=== PATIENT | male | born 1955 | race Caucasian/White ===

== ENCOUNTER 2016-09-01 10:10 | Outpatient (CLI) | payer OTHER ==
--- NOTE | 2016-09-01 19:27 | XRAY Report ---
X-RAYS OF THE LEFT INDEX AND MIDDLE FINGERS: 09/01/2016 CLINICAL HISTORY: Trauma. COMPARISON: None. FINDINGS: Mild soft tissue swelling is noted about the left index and middle fingers. No fracture i s noted. IMPRESSION: MILD SOFT TISSUE SWELLING IS SEEN IN THE LEFT INDEX AND MIDDLE FINGERS WITHOUT FRACTURE. JOB #: [id number] EXT JOB #:[id number]
== END 2016-09-01 10:11 | disposition home or self-care (01) ==
LOC: DI 10:10
PROVIDERS: ATTEND Physician Assistant Medical
DX: S69.92XA Unspecified injury of left wrist, hand and finger(s), initial encounter (principal)
CPT/HCPCS: 73140

== ENCOUNTER 2017-03-08 13:24 | Outpatient (CLI) | payer OTHER | END 2017-03-08 13:25 | disposition home or self-care (01) | LOC: SC 13:24 | PROVIDERS: ATTEND Internal Medicine Pulmonary Disease | DX: G47.33 Obstructive sleep apnea (adult) (pediatric) (principal) | CPT/HCPCS: 99203; 99212 ==

== ENCOUNTER 2017-06-21 08:00 | Outpatient (CLI) | payer OTHER ==
[2017-06-21 12:42] LABS: BASOPHILS % (AUTO) 0.5 %; EOSINOPHILS # (AUTO) 0.2 10^3/uL (0.0-0.7); EOSINOPHILS % (AUTO) 3.4 %; HGB - HEMOGLOBIN 14.1 g/dL (14.0-18.0); LYMPHOCYTES # (AUTO) 2.3 10^3/uL (1.5-3.5); LYMPHOCYTES % (AUTO) 44.9 %; MEAN CORPUSCULAR HEMOGLOBIN 29.6 pg (27.0-31.0); MEAN CORPUSCULAR HGB CONC 34.1 g/dL (32.0-36.0); MEAN CORPUSCULAR VOLUME 86.8 fL (80.0-94.0); MEAN PLATELET VOLUME 8.9 fL (7.4-11.4); MONOCYTES # (AUTO) 0.4 10^3/uL (0.0-1.0); MONOCYTES % (AUTO) 7.9 %; NEUTROPHILS # (AUTO) 2.2 10^3/uL (1.5-6.6); NEUTROPHILS % (AUTO) 43.3 %; PLT - PLATELET COUNT 162 10^3/uL (130-450); RED BLOOD COUNT 4.76 10^6/uL (4.70-6.10); WHITE BLOOD COUNT 5.2 x10^3/uL (4.8-10.8)
[2017-06-21 13:11] LABS: ALBUMIN 3.9 g/dL (3.2-5.5); ALBUMIN/GLOBULIN RATIO 1.2 (1.0-2.2); ALKALINE PHOSPHATASE 53 IU/L (42-121); ALT ALANINE AMINOTRANSFERASE 24 IU/L (10-60); AST ASPARTATE AMINOTRANSFERASE 19 IU/L (10-42); BILIRUBIN,TOTAL 0.5 mg/dL (0.2-1.0); BUN - BLOOD UREA NITROGEN 20 mg/dL (6-20); CALCIUM 8.6 mg/dL (8.5-10.3); CARBON DIOXIDE - CO2 28 mmol/L (21-32); CHLORIDE 102 mmol/L (101-111); CHOL/HDL RATIO 3.8 (<5.0); CHOLESTEROL 126 mg/dL; GFR - MDRD 76 (>89); GLUCOSE 134 mg/dL (70-100); HDL CHOLESTEROL 33 mg/dL; LDL CHOLESTEROL,CALCULATED 67 mg/dL; SODIUM 138 mmol/L (135-145); TOTAL PROTEIN 7.2 g/dL (6.7-8.2); VLDL CHOLESTEROL 26 mg/dL
[2017-06-21 13:32] LABS: HB2 TOTAL 15.2 g/dL; HEMOGLOBIN A1C 1.2 g/dL; HEMOGLOBIN A1C % 9.4 % (4.6-6.2)
== END 2017-06-21 23:59 | disposition home or self-care (01) ==
LOC: LAB.N 08:00
PROVIDERS: ATTEND Internal Medicine
DX: E11.9 Type 2 diabetes mellitus without complications (principal); E78.5 Hyperlipidemia, unspecified; M06.9 Rheumatoid arthritis, unspecified
CPT/HCPCS: 36415; 80053; 80061; 83036; 83721; 85025

== ENCOUNTER 2019-08-23 18:18 | Outpatient (CLI) | payer OTHER | END 2019-08-23 18:19 | disposition home or self-care (01) | LOC: COV 18:18 | PROVIDERS: ATTEND Family Medicine | DX: R05 Cough (principal); M79.10 Myalgia, unspecified site; R53.83 Other fatigue; R68.83 Chills (without fever); J02.9 Acute pharyngitis, unspecified; R19.7 Diarrhea, unspecified | CPT/HCPCS: 81599 ==

== ENCOUNTER 2019-08-30 10:43 | Outpatient (CLI) | payer OTHER | END 2019-08-30 10:44 | disposition home or self-care (01) | LOC: COV 10:43 | PROVIDERS: ATTEND Physician Assistant Medical | DX: J32.9 Chronic sinusitis, unspecified (principal) | CPT/HCPCS: 81599 ==

== ENCOUNTER 2019-10-05 10:06 | Outpatient (CLI) | payer OTHER ==
[2019-10-05 10:36] LABS: BASOPHILS % (AUTO) 0.5 %; EOSINOPHILS # (AUTO) 0.1 10^3/uL (0.0-0.7); EOSINOPHILS % (AUTO) 3.5 %; HGB - HEMOGLOBIN 13.6 g/dL (14.0-18.0); LYMPHOCYTES # (AUTO) 1.6 10^3/uL (1.5-3.5); LYMPHOCYTES % (AUTO) 39.1 %; MEAN CORPUSCULAR HEMOGLOBIN 30.2 pg (27.0-31.0); MEAN CORPUSCULAR HGB CONC 33.6 g/dL (32.0-36.0); MEAN PLATELET VOLUME 9.8 fL (7.4-11.4); MONOCYTES # (AUTO) 0.3 10^3/uL (0.0-1.0); MONOCYTES % (AUTO) 7.4 %; NEUTROPHILS % (AUTO) 49.5 %; PLT - PLATELET COUNT 163 10^3/uL (130-450); RED CELL DISTRIBUTION WIDTH 13.2 % (12.0-15.0)
[2019-10-05 10:51] LABS: HB2 TOTAL 14.2 g/dL; HEMOGLOBIN A1C 0.75 g/dL
[2019-10-05 11:25] LABS: ALBUMIN 4.1 g/dL (3.2-5.5); ALBUMIN/GLOBULIN RATIO 1.3 (1.0-2.2); ALKALINE PHOSPHATASE 50 IU/L (42-121); ALT ALANINE AMINOTRANSFERASE 21 IU/L (10-60); AST ASPARTATE AMINOTRANSFERASE 18 IU/L (10-42); BUN - BLOOD UREA NITROGEN 26 mg/dL (6-20); CALCIUM 8.6 mg/dL (8.5-10.3); CARBON DIOXIDE - CO2 27 mmol/L (21-32); CHLORIDE 101 mmol/L (101-111); CHOL/HDL RATIO 3.1 (<5.0); CHOLESTEROL 112 mg/dL; GLUCOSE 133 mg/dL (70-100); HDL CHOLESTEROL 36 mg/dL; LDL CHOLESTEROL,CALCULATED 62 mg/dL; LDL/HDL RATIO 1.7 (<3.6); SODIUM 137 mmol/L (135-145); TOTAL PROTEIN 7.3 g/dL (6.7-8.2); VLDL CHOLESTEROL 14 mg/dL
[2019-10-05 11:45] LABS: MICROALBUM/CREATININE RATIO,UR 13.7 ug/mg (<30.0); MICROALBUMIN,URINE 1.6 mg/dL (0-300.0)
== END 2019-10-05 10:07 | disposition home or self-care (01) ==
LOC: LAB 10:06
PROVIDERS: ATTEND Family Medicine
DX: E11.9 Type 2 diabetes mellitus without complications (principal); E78.5 Hyperlipidemia, unspecified; I10 Essential (primary) hypertension
CPT/HCPCS: 36415; 80053; 80061; 82043; 82570; 83036; 83721; 84443; 85025

== ENCOUNTER 2020-03-21 08:35 | Outpatient (CLI) | payer MEDICARE, OTHER ==
[2020-03-21 09:53] VITALS: BP 150/90
--- NOTE | 2020-03-21 09:53 | SLEEP CARE CONSULTATION ---
Information from patient questionnaire entered by Marsha Zamarripa. I have reviewed and concur with the information entered by Marsha Zamarripa. This document represents the service I personally performed and the decisions made by me, Sharon Satna ARNP. History of Present Illness Service Date and Time: 03/21/2020 0835 Reason for Visit: New patient, Previously diagnosed sleep apnea (severe - AHI - 57.8), sleep apnea on CPAP therapy, Re-establish care Chief Complaint: reports: Other (re-establish care support) Date of Onset: BINDU about 15 years Usual bedtime: varies Time it takes to fall asleep: 2-10 minutes Snores at night: Yes (occasionally) Observed to quit breathing while asleep: No Sleeps alone due to snoring: Yes Reasons for waking at night: reports: Bathroom (occasionally), Other (mask leaks) Toss, Turn, or Twitch while sleeping: No Recalls having dreams: Yes Usually gets out of bed at: varies 6-9 am Feels refreshed in the morning: Yes Morning headache: No Sleepy or fatigued during the day: No Ever fallen asleep while driving: Yes Takes day naps: Yes Dreams during day naps: No Prior sleep studies: Yes Year and Where: 2007 - [facility] Sleep Additional HPI information: GENE ESPINAL was diagnosed to have severe, AHI 57.8, obstructive sleep apnea- hypopnea syndrome and returned today for CPAP therapy re-establishment of care. - Parasomnia Symptoms Ever been unable to move upon waking from sleep: No Walks in sleep: No Talks in sleep: No Ever acted out dreams in sleep: No Ever felt weak in the knees when startled or emotional: No Bothered by creepy, crawly, restless sensations in legs: No Problems with memory or concentration: No CPAP Compliance Data - Data Reviewed with Patient Average duration of nightly device use: 7 hr 56 min Compliance rate %: 99.4 (180 days) Current pressure setting (cmH2O): 18-20 Humidity settin Heated hose settin Average residual AHI: 4.7 Average large leak: 12 min 50 sec Compliance data discussion: Patient has been using [employer] for supplies, but would like to change because he has experienced poor service with this [email or web address] when trying to get supplies or service. He is using a Quattro full face mask. He has a spare mask. He last changed his cushion 3 weeks ago. Subjective Patient concerns: reports: air blowing in eyes (just occasional, adjusting resolves it), nasal congestion (clears with Vicks or Rhinocort, no real problems), dry mouth, nose, throat (rare, 1-2 times a month when mouth is open). denies: aerophagia, mask discomfort, mask leak noise, condensation in mask/hose, epistaxis, other Observed to snore while using device: No Current pressure setting perceived as: comfortable On therapy, patient: reports: sleeping better, awakening more refreshed, being more awake and alert during the day, more rested overall. denies: drowsiness while driving Initial [place] Sleepiness Scale score: 10 (in 2007) Current [place] Sleepiness Scale score: 4 Past Medical History Past Medical History: reports: Diabetes, Other (RA that is in remission). denies: Hypertension (may be pre hypertensive; white coat too), Arrythmia, Anxiety, Impotence, Depression, GERD Social History The patient's occupation is a RN. Patient is and lives in [place]. Have you smoked in the past 12 months: No Cigarettes per day (20/pack): 20 Years of smokin Quit date: July 28, 1998 Smoking Pack Years: 18.0 Alcohol use: Yes Alcohol amount and frequency: 1-2 drinks 1-2 times a month Caffeine use: Yes Caffeine amount and frequency: coffee 2 times a day Family History Family history of sleep disordered breathing: Yes (brother) Family Hx Sleep Apnea: Sibling: Snoring, Sleep apnea - Treated Allergies and Home Medications Drug allergies reviewed: Yes (rocephin, toradol, septra) Home medication list reviewed: Yes Allergy and home medication list: Metformin Hydroxyzine Lipitor aspirin Novolog insulin Lantus insulin Neurontin alkaseltzer, prn Motrin, prn Review of Systems Weight loss over past 5 years: 36-40 Cardiovascular: reports: high blood pressure (only borderline, improving with weight loss and diet change). denies: palpitations, irregular heart rate or pulse Respiratory: denies: shortness of breath Gastrointestinal: denies: heartburn, difficulty swallowing Urinary: denies: impotence Neurological: reports: other (sensor neural hearing loss, right side). denies: headaches Ear/Nose/Throat: reports: nasal congestion, sinus problems (history of sinuse surgery), tonsillectomy, wisdom teeth removed. denies: dry mouth/throat, injury to nose Endocrine: denies: thyroid disease Musculoskeletal: reports: joint pain Immunologic: reports: sneezing, itching Physical Exam Blood Pressure: 150/90 Cuff size: large Heart Rate: 69 O2 Saturation: 96 Height: 5 ft 10 in Weight: 282 lb Body Mass Index: 40.4 BMI Classification: Morbidly Obese Neck circumference: 17.75 (inches) Nostrils: partially obstructed Turbinates: swollen Mouth and throat: narrow oropharynx Uvula visualization: 100% Mallampati Class I Tongue: normal in size Tonsils: absent bilaterally Chin and jaw: normal size and position Neck: normal w/o lymphadenopathy or thyromegaly Heart: regular rate and rhythm Lungs: clear bilaterally Impression and Plan 1. Obstructive Sleep Apnea-Hypopnea Syndrome, severe, with good treatment compliance and fair apnea control. On CPAP therapy, the patient has better sleep quality and is more rested overall. He is not happy with service he has been getting from [facility] and would like to try a new DME. Patient was informed that another DME can be used. I will have my complaint coordinator inform of DME options. A DWO prescription will then be made. Patient advised to contact this office if further supply problems. Patient's apnea severity and rationale for treatment to reduce apnea, improve sleep quality and reduce cardiovascular and cerebrovascular events was reviewed. I also reviewed the benefit of consistent device use of CPAP for diabetes. * Continue autoCPAP pressure at 18-20 cmH2O * Transfer DME * Notify me if snoring with mask or feeling that the pressure is too much or too little * Attempt to lose weight * Call this office if any problems using CPAP * Return for follow up in 1 year, or sooner if concerns arise Counseling Topics: Spare mask, Weight loss health impact Visit Type: In Office Time Spent with Patient (minutes): 46 Provider Statement: I spent 100% of the Face to Face Visit with the patient with greater than 50% spent counseling the patient and coordination of care.
== END 2020-03-21 08:36 | disposition home or self-care (01) ==
LOC: SC 08:35
PROVIDERS: ATTEND Nurse Practitioner Family
DX: G47.33 Obstructive sleep apnea (adult) (pediatric) (principal); E66.01 Morbid (severe) obesity due to excess calories; Z68.41 Body mass index [BMI] 40.0-44.9, adult
CPT/HCPCS: 99203; G0463; 99212

== ENCOUNTER 2020-05-08 11:36 | Outpatient (CLI) | payer MEDICARE, OTHER ==
--- NOTE | 2020-05-08 13:15 | XRAY Report ---
PROCEDURE: Wrist 3 View RT INDICATIONS: ULNAR NERVE ENTRAPMENT, RT TECHNIQUE: 3 views of the wrist were acquired. COMPARISON: None FINDINGS: Bones: No fractures or dislocations. Mild osteoarthritic changes predominantly along radial aspect of right wrist are seen. No suspicious bony lesions. Scaphoid view: Scaphoid is intact. Soft tissues: No suspicious soft tissue calcifications. 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 No fracture or dislocation. If cli nically indicated, consider MR examination of wrist for evaluation of internal derangement. Reviewed by: Vince Du MD on 05/08/2020 1:14 PM PST Approved by: Vince Du MD on 05/08/2020 1:14 PM PST Station ID: [id number]
--- NOTE | 2020-05-08 13:26 | XRAY Report ---
PROCEDURE: Cervical Spine 2 View INDICATIONS: ULNAR NERVE ENTRAPMENT, RT TECHNIQUE: 3 view(s) of the cervical spine were acquired. COMPARISON: None. FINDINGS: Bones: No fractures or dislocations to the C7-T1 level. Straightening of normal cervical lordosis i s seen. Degenerative endplate changes are noted at C5-6 and C6-7 levels. The lateral masses of C1 lulu ear intact on the odontoid view. No suspicious bony lesions. Soft tissues: No prevertebral soft tissue swelling. IMPRESSION: Degenerative disc disease in lower cervical spine. No compression fracture or spondyloli sthesis. Reviewed by: Vince Du MD on 05/08/2020 1:25 PM PST Approved by: Vince Du MD on 05/08/2020 1:25 PM PST Station ID: [id number]
== END 2020-05-08 11:37 | disposition home or self-care (01) ==
LOC: DI 11:36
PROVIDERS: ATTEND Family Medicine
DX: M19.031 Primary osteoarthritis, right wrist (principal); M50.322 Other cervical disc degeneration at C5-C6 level

== ENCOUNTER 2020-05-16 08:00 | Outpatient (CLI) | payer MEDICARE, OTHER ==
[2020-05-16 14:07] LABS: BUN - BLOOD UREA NITROGEN 19 mg/dL (6-20); CALCIUM 9.5 mg/dL (8.5-10.3); CARBON DIOXIDE - CO2 30 mmol/L (21-32); CHLORIDE 99 mmol/L (101-111); CREATININE 1.1 mg/dL (0.6-1.2); GLUCOSE 205 mg/dL (70-100); RHEUMATOID FACTOR NEGATIVE (Negative)
[2020-05-16 14:08] LABS: CRP - C-REACTIVE PROTEIN < 1.0 mg/dL (0-1.0)
[2020-05-16 14:22] LABS: CREATININE,URINE 153.7 mg/dL; MICROALBUM/CREATININE RATIO,UR 14.3 ug/mg (<30.0); MICROALBUMIN,URINE 2.2 mg/dL (0-300.0)
[2020-05-16 20:57] LABS: HEMOGLOBIN A1c% 7.5 % (4.27-6.07)
[2020-05-18 12:07] LABS: DNA (DS) ANTIBODY 1 IU/mL
[2020-05-18 21:12] LABS: CYCLIC CITRULL PEPTIDE CCP IGG 25 UNITS
== END 2020-05-16 23:59 ==
LOC: LAB.WCP 08:00
PROVIDERS: ATTEND Family Medicine
DX: E11.9 Type 2 diabetes mellitus without complications (principal); E66.01 Morbid (severe) obesity due to excess calories; M05.10 Rheumatoid lung disease with rheumatoid arthritis of unspecified site; G47.33 Obstructive sleep apnea (adult) (pediatric); I10 Essential (primary) hypertension
CPT/HCPCS: 36415; 80048; 82043; 82570; 83036; 85651; 86038; 86140; 86200; 86225; 86430

== ENCOUNTER 2020-06-06 14:12 | Outpatient (CLI) | payer MEDICARE, OTHER ==
--- NOTE | 2020-06-07 14:28 | MRI Report ---
A single PROCEDURE: Wrist RT W/O INDICATIONS: R ULNAR NERVE ENTRAPMENT, CARPAL TUNNEL SYNDRO TECHNIQUE: Noncontrast coronal proton density fast spin echo and T2 fast spin echo with fat saturation; coronal 3-D gradient echo, axial T1 spin echo and T2 fast spin echo with fat saturation, sagittal T1 spin ech o through the wrist. COMPARISON: None. FINDINGS: Image quality: Suboptimal due to motion artifact and signal dropout. Bones and cartilage: The carpal bones are normally aligned. No bone marrow contusions or fractures. There is ill-defined sclerosis and signal change involving the lunate, with T2 hyperintensity raisin g possibility of Kienbock disease. No evidence for avascular necrosis. First CMC and triscaphe joint generation. Nonspecific marrow sig nal changes and T2 hyperintensity involving the first metacarpal base. Scattered subchondral sclerosi s and spurring. Carpal ligaments: The scapholunate and lunotriquetral ligaments are not well visualized. In the abs ence of intra-articular contrast, the extrinsic carpal ligaments are not well identified. On sagitta l images, the pisohamate ligament appears intact. Triangular fibrocartilage complex: The triangular fibrocartilage appears intact. The adjacent menis zachariah homolog appears normal in the absence of intra-articular contrast. The extensor carpi ulnaris te ndon is normal in location and morphology. Tendons and soft tissues: There is mild T2 hyperintensity adjacent to the flexor tendons at the level of the carpal tunnel. There is mild volar bowing appearance of the flexor retinaculum. Median nerve demonstrates normal size and signal intensity. The ulnar nerve appears normal within Guyon?s canal. All six extensor tendon compartments demonstra te normal morphology, without pathologic tendon sheath fluid. No soft tissue ganglion cysts. IMPRESSION: Mild edema/T2 hyperintensity adjacent to the flexor tendons within the carpal tunnel which can be see n in setting of carpal tunnel syndrome although the MR appearance is subtle therefore please correlat e clinically to exam findings. Ill-defined signal changes involving the lunate raises possibility of Kienbock disease. Diffuse osteoarthritis, most pronounced in the ulnocarpal compartment, triscaphe and first CMC joints . Reviewed by: Hadley Raya MD on 06/07/2020 2:26 PM PST Approved by: Hadley Raya MD on 06/07/2020 2:26 PM PST Station ID: [id number]
== END 2020-06-06 14:13 | disposition home or self-care (01) ==
LOC: DI 14:12
PROVIDERS: ATTEND Family Medicine
DX: G56.21 Lesion of ulnar nerve, right upper limb (principal); G56.01 Carpal tunnel syndrome, right upper limb; M19.031 Primary osteoarthritis, right wrist

== ENCOUNTER 2020-10-28 08:00 | Outpatient (CLI) | payer MEDICARE, OTHER ==
[2020-10-28 18:36] LABS: BASOPHILS % (AUTO) 0.6 %; EOSINOPHILS # (AUTO) 0.1 10^3/uL (0.0-0.7); EOSINOPHILS % (AUTO) 2.3 %; HCT - HEMATOCRIT 41.4 % (42.0-52.0); HGB - HEMOGLOBIN 13.9 g/dL (14.0-18.0); LYMPHOCYTES # (AUTO) 1.6 10^3/uL (1.5-3.5); LYMPHOCYTES % (AUTO) 33.5 %; MEAN CORPUSCULAR HEMOGLOBIN 30.9 pg (27.0-31.0); MEAN CORPUSCULAR HGB CONC 33.6 g/dL (32.0-36.0); MEAN PLATELET VOLUME 10.9 fL (7.4-11.4); MONOCYTES # (AUTO) 0.4 10^3/uL (0.0-1.0); MONOCYTES % (AUTO) 7.9 %; NEUTROPHILS # (AUTO) 2.7 10^3/uL (1.5-6.6); NEUTROPHILS % (AUTO) 55.5 %; PLT - PLATELET COUNT 180 10^3/uL (130-450); RED CELL DISTRIBUTION WIDTH 13.2 % (12.0-15.0); WHITE BLOOD COUNT 4.8 x10^3/uL (4.8-10.8)
[2020-10-28 19:02] LABS: ESTIMATED AVERAGE GLUCOSE 137 mg/dL (70-100); HEMOGLOBIN A1c% 6.4 % (4.27-6.07)
[2020-10-28 19:11] LABS: ALBUMIN 4.3 g/dL (3.2-5.5); ALBUMIN/GLOBULIN RATIO 1.4 (1.0-2.2); ALKALINE PHOSPHATASE 51 IU/L (42-121); ALT ALANINE AMINOTRANSFERASE 25 IU/L (10-60); AST ASPARTATE AMINOTRANSFERASE 23 IU/L (10-42); BILIRUBIN,TOTAL 0.6 mg/dL (0.2-1.0); BUN - BLOOD UREA NITROGEN 20 mg/dL (6-20); CALCIUM 9.4 mg/dL (8.5-10.3); CARBON DIOXIDE - CO2 27 mmol/L (21-32); CHLORIDE 104 mmol/L (101-111); CHOL/HDL RATIO 2.8 (<5.0); CHOLESTEROL 122 mg/dL; GFR - MDRD 75 (>89); GLUCOSE 150 mg/dL (70-100); HDL CHOLESTEROL 43 mg/dL; LDL CHOLESTEROL,CALCULATED 58 mg/dL; LDL/HDL RATIO 1.3 (<3.6); POTASSIUM 4.2 mmol/L (3.5-5.0); SODIUM 141 mmol/L (135-145); THYROID STIMULATING HORMONE 1.11 uIU/mL (0.34-5.60); TOTAL PROTEIN 7.4 g/dL (6.7-8.2); TRIGLYCERIDES 103 mg/dL; VLDL CHOLESTEROL 21 mg/dL
== END 2020-10-28 23:59 | disposition home or self-care (01) ==
LOC: LAB.WCP 08:00
PROVIDERS: ATTEND Family Medicine
DX: E11.9 Type 2 diabetes mellitus without complications (principal); E78.5 Hyperlipidemia, unspecified; G47.33 Obstructive sleep apnea (adult) (pediatric); F32.9 Major depressive disorder, single episode, unspecified; I10 Essential (primary) hypertension
CPT/HCPCS: 36415; 80053; 80061; 83036; 83721; 84443; 85025

== ENCOUNTER → 2020-10-31 | Outpatient (CLI) | payer MEDICARE, OTHER ==
--- NOTE | 2020-10-31 17:00 | XRAY Report ---
PROCEDURE: Chest 2 View X-Ray INDICATIONS: CHEST WELL PAIN; CLAVICLE PAIN TECHNIQUE: 2 view(s) of the chest. COMPARISON: None. FINDINGS: Surgical changes and devices: None. Lungs and pleura: No pleural effusions or pneumothorax. Lungs are clear. Mediastinum: Mediastinal contours are normal. Heart size is normal. Bones and chest wall: No suspicious bony abnormalities. Soft tissues appear unremarkable. IMPRESSION: No acute cardiopulmonary pathology. Reviewed by: Vince Du MD on 10/31/2020 4:59 PM PDT Approved by: Vince Du MD on 10/31/2020 4:59 PM PDT Station ID: [id number]
== END ==
LOC: DI.N 07:00
PROVIDERS: ATTEND Family Medicine
DX: R07.9 Chest pain, unspecified (principal); M25.519 Pain in unspecified shoulder

== ENCOUNTER 2021-01-07 09:55 | Outpatient (CLI) | payer MEDICARE, OTHER ==
[2021-01-07 12:24] LABS: HCT - HEMATOCRIT 42.7 % (42.0-52.0); HGB - HEMOGLOBIN 14.1 g/dL (14.0-18.0); MEAN CORPUSCULAR HEMOGLOBIN 30.3 pg (27.0-31.0); MEAN CORPUSCULAR VOLUME 91.6 fL (80.0-94.0); MEAN PLATELET VOLUME 10.7 fL (7.4-11.4); RED BLOOD COUNT 4.66 10^6/uL (4.70-6.10); RED CELL DISTRIBUTION WIDTH 12.9 % (12.0-15.0); WHITE BLOOD COUNT 5.2 x10^3/uL (4.8-10.8)
[2021-01-07 12:35] LABS: CALCIUM 9.1 mg/dL (8.5-10.3); POTASSIUM 4.1 mmol/L (3.5-5.0)
[2021-01-07 13:40] LABS: ESTIMATED AVERAGE GLUCOSE 151 mg/dL (70-100); HEMOGLOBIN A1c% 6.9 % (4.27-6.07)
== END 2021-01-07 09:56 | disposition home or self-care (01) ==
LOC: LAB.N 09:55
PROVIDERS: ATTEND Family Medicine
DX: Z12.11 Encounter for screening for malignant neoplasm of colon (principal); R61 Generalized hyperhidrosis; E11.9 Type 2 diabetes mellitus without complications; R05 Cough
CPT/HCPCS: 36415; 80048; 83036; 85027

== ENCOUNTER 2021-01-07 10:00 | Outpatient (CLI) | payer MEDICARE, OTHER | END 2021-01-07 10:01 | disposition home or self-care (01) | LOC: DI.N 10:00 | PROVIDERS: ATTEND Family Medicine | DX: Z12.11 Encounter for screening for malignant neoplasm of colon (principal); R61 Generalized hyperhidrosis; E11.9 Type 2 diabetes mellitus without complications; R05 Cough | CPT/HCPCS: 36415; 80048; 83036; 85027 ==

== ENCOUNTER 2021-01-08 10:28 | Outpatient (CLI) | payer MEDICARE, OTHER ==
--- NOTE | 2021-01-08 11:08 | XRAY Report ---
PROCEDURE: Chest 2 View X-Ray INDICATIONS: DIAPHORESIS TECHNIQUE: 2 view(s) of the chest. COMPARISON: None. FINDINGS: Surgical changes and devices: None. Lungs and pleura: No pleural effusions or pneumothorax. Lungs are clear. Mediastinum: Mediastinal contours are normal. Heart size is normal. Bones and chest wall: No suspicious bony abnormalities. Soft tissues appear unremarkable. IMPRESSION: No acute cardiopulmonary process demonstrated radiographically. Reviewed by: Dayton Yepez MD on 01/08/2021 11:06 AM PDT Approved by: Dayton Yepez MD on 01/08/2021 11:06 AM PDT Station ID: [id number]
== END 2021-01-08 10:29 | disposition home or self-care (01) ==
LOC: DI.N 10:28
PROVIDERS: ATTEND Family Medicine
DX: R61 Generalized hyperhidrosis (principal); R05 Cough

== ENCOUNTER 2021-02-04 14:23 | Outpatient (CLI) | payer MEDICARE, OTHER ==
[2021-02-04 15:07] VITALS: BP 142/88
--- NOTE | 2021-02-04 15:07 | SLEEP CARE CONSULTATION ---
Information from patient questionnaire entered by Hailee Barrett. I have reviewed and concur with the information entered by Hailee Barrett. This document represents the service I personally performed and the decisions made by me, Sharon Santa ARNP. History of Present Illness Service Date and Time: 02/04/2021 1423 Previous diagnosis: Severe, Obstructive Sleep Apnea-Hypopnea Syndrome AHI: 57.8 Reason for follow up: other (10 month transfer of care) Equipment type: CPAP Equipment obtained from: [facility] (has had bad experiences with this DME) Mask style: Full face Backup mask available: Yes (old mask) Prior sleep studies: Yes Year and Where: 2007 - [facility] Type of Sleep Study: Polysomnography HPI additional information: GENE ESPINAL was diagnosed to have severe, AHI 57.8, obstructive sleep apnea- hypopnea syndrome and returned today for CPAP therapy 10 month follow-up, need transfer of care. Sleep Study - Results Prior sleep studies: Yes Year and Where: 2007 [facility] Sleep CPAP Compliance Data - Data Reviewed with Patient Average duration of nightly device use: 7 hours 33 minutes Compliance rate %: 98.3 Current pressure setting (cmH2O): 18-20 Humidity settin Heated hose settin Average residual AHI: 6.3 Average large leak: 5 minutes Subjective Patient concerns: reports: mask discomfort (soreness on bridge of nose with current mask; prefers Mirage Quattro). denies: aerophagia, air blowing in eyes, mask leak noise, condensation in mask/hose, nasal congestion, dry mouth, nose, throat, epistaxis, other Observed to snore while using device: No Current pressure setting perceived as: comfortable On therapy, patient: reports: sleeping better, awakening more refreshed, being more awake and alert during the day, more rested overall. denies: drowsiness while driving Initial [place] Sleepiness Scale score: 10 Current [place] Sleepiness Scale score: 3 Allergies and Home Medications Home medication list reviewed: Yes (no changes) Review of Systems Review of systems same as previous: Yes (no changes) Physical Exam Blood Pressure: 142/88 Cuff size: large Heart Rate: 97 O2 Saturation: 96 Height: 5 ft 10 in Weight: 266 lb Body Mass Index: 38.1 BMI Classification: Obese Impression and Plan 1. Obstructive Sleep Apnea-Hypopnea Syndrome, severe, with good treatment compliance and fair apnea control with mild elevation of residual AHI. On CPAP therapy, the patient has better sleep quality and is more rested overall. Patient is not happy with current DME. Patient would like to try another DME company. I will have my drug abuse program coordinator inform of DME options. A DWO prescription will then be made. Patient advised to contact this office if further supply problems. Patient is also having issues with soreness on the bridge of nose. He actually would like to change back to the Mirage Quattro full face mask but was unable to get this from [employer]. I showed him the option of an AirFit F30i and he would try this if the new DME does not have the Quattro available. This is added to prescription. Patient was encouraged to lose weight for their overall health and to reduce apneas. Patient's apnea severity and rationale for treatment to reduce apnea, improve sleep quality and reduce cardiovascular and cerebrovascular events was reviewed. I also reviewed the benefit of consistent device use of CPAP for diabetes. * Continue auto CPAP pressure at 18-20 cmH2O * Transfer DME * Notify me if snoring with mask or feeling that the pressure is too much or too little * Attempt to lose weight * Call this office if any problems using CPAP * Return for follow up in 1 year, or sooner if concerns arise Counseling Topics: Spare mask, Weight loss health impact Visit Type: In Office Time Spent with Patient (minutes): 21 Provider Statement: I spent 100% of the Face to Face Visit with the patient with greater than 50% spent counseling the patient and coordination of care.
== END 2021-02-04 14:24 | disposition home or self-care (01) ==
LOC: SC 14:23
PROVIDERS: ATTEND Nurse Practitioner Family
DX: G47.33 Obstructive sleep apnea (adult) (pediatric) (principal); E66.9 Obesity, unspecified; Z68.38 Body mass index [BMI] 38.0-38.9, adult
CPT/HCPCS: 99213; G0463; 99212

== ENCOUNTER 2021-04-08 15:38 | Outpatient (CLI) | payer MEDICARE, OTHER ==
[2021-04-08 18:53] LABS: CALCIUM 9.1 mg/dL (8.5-10.3); POTASSIUM 4.3 mmol/L (3.5-5.0)
[2021-04-08 18:58] LABS: MICROALBUM/CREATININE RATIO,UR 19.8 ug/mg (<30.0); MICROALBUMIN,URINE 1.8 mg/dL (0-300.0)
[2021-04-08 20:45] LABS: ESTIMATED AVERAGE GLUCOSE 148 mg/dL (70-100); HEMOGLOBIN A1c% 6.8 % (4.27-6.07)
== END 2021-04-08 15:39 | disposition home or self-care (01) ==
LOC: LAB.N 15:38
PROVIDERS: ATTEND Family Medicine
DX: E11.9 Type 2 diabetes mellitus without complications (principal)
CPT/HCPCS: 36415; 80048; 82043; 82570; 83036

== ENCOUNTER 2021-04-29 13:57 | Outpatient (CLI) | payer MEDICARE, OTHER | END 2021-04-29 23:59 | disposition home or self-care (01) | LOC: LAB.N 13:57 | PROVIDERS: ATTEND Physician Assistant Medical | DX: R05.9 Cough, unspecified (principal); R09.81 Nasal congestion; Z20.822 Contact with and (suspected) exposure to COVID-19 ==

== ENCOUNTER 2021-05-20 09:20 | Outpatient (CLI) | payer MEDICARE, OTHER ==
--- NOTE | 2021-05-20 09:53 | CARDIAC PROCEDURE NOTE ---
Stress Test Report Service Date: 05/20/21 Service Time: 09:30 Ordering Provider: Mynor Sun MD Indication for Test: Assess heart rhythm and vital sign response to exercise as well as for evidence of inducible ischemia in patient with "heart flutters" and high cardiac risk factor profile. 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 He presents with a history for approximately 6 months of intermittent "heart flutters", sometimes occurring at rest and sometimes in the context of exertion, mostly post- exertionally. The episodes are transient and when occurring at rest typically are not accompanied by other manifestations. However when the flutters occur after significant exertion there may be associated lightheadedness, though never severe nor resulting in jonathan presyncope. He denies associated chest discomfort, though does report intermittent touch-sensitive "costochondritis". He reports a decrement in his exercise tolerance about 12 yrs ago with onset of rheumatoid disease (with lung involvement) but without further decrease over the recent past. He reports a low threshold for experiencing diaphoresis, the p attern of which has not changed with evolution of the other symptoms. Cardiac Risk Factors: History of diabetes (about 9 yrs) and hyperlipidemia, with occasional elevated blood pressures, not treated chronically. He smoked tobacco but quit over 20 yrs ago. His father has a history of atrial fibrillation, but reportedly had a cardiac catheterization showing normal coronaries; the patient is unaware of ASCVD events in other close family members. Additional risk-modifying factors include history of rheumatoid arthritis and BINDU treated with CPAP. Type of Stress Test: ETT with Echocardiography Procedure: -Exercise Treadmill Test- After signing informed consent, the patient underwent rest echo imaging (with Definity contrast, for which separate consent was obtained) and then performed treadmill exercise using a Kishore protocol. The patient exercised for 5 minutes 51 seconds and achieved a peak heart rate of 148 (96 percent predicted maximum heart rate for age), and an estimated workload of 7.1 METS. The test was terminated due to fatigue/shortness of breath, after target HR was achieved. Resting heart rate: 65 Peak heart rate: 148 Normal response to exercise. Resting BP: 169/90 Peak BP: 259/104 Elevated resting blood pressure with hypertensive increase in both systolic and diastolic pressures with exercise. During exercise there was gradual decrease in room air oxygen saturation, to a pushpa between 85-88%, with rapid normalization in recovery. Rhythm during exercise: Sinus rhythm throughout with observation of a single PVC couplet near pear exercise. Symptoms: Primary symptom was progressive dyspnea, with no description of chest discomfort and only mild "flutters" near peak exertion (not as strong as experienced at home and not associated with lightheadedness. EKG at rest showed Normal sinus rhythm with increased frontal plane QRS-T angle, suggestive of possible primary T-wave abnormality; no QRS or ST abnormalities. EKG at peak stress showed J-point depression with upsloping ST segments. In Recovery there was slow decrease in heart rate and BP, with persistent elevation of both (94, 192/87) at 7 minutes. Echo imaging performed with Defenity contrast at both rest and with stress, which will be reported separately. Gian Vazquez MD, was present throughout this treadmill stress study and supervised it in its entirety. Summary: 1) Exercise tolerance moderately decreased for age and gender as evidenced by LAURA of 19.7%. 2) Borderline but fully interpretable resting EKG. 3) Adequate level of exercise was achieved on this treadmill stress test. 4) Hypertensive at rest with exaggerated BP increase with exercise, and delayed return to baseline level. Cardiac diabetic autonomic neuropathy could be contributory. 5) Exercise-associated oxygen desaturation to at least 88% was present. 6) No ischemic changes by EKG criteria were seen at peak stress. 7) Echo image interpretation reveals normal left ventricular size and systolic function, with appropriate hyperdynamic augmentation of all segments with exercise, indicating no evidence of prior infarct or inducible ischemia. There were no abnormalities of LV wall thickness, valve morphology or elevated estimated right ventricular/pulmonary artery systolic pressure detected on baseline screening. See separate report for more details. CONCLUSIONS: 1) No ischemic symptoms or heart flutters were described, with no EKG findings indicative of ischemia or dysrhythmia. 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 3) Although patient reports normotension on home BP monitoring, his elevated pressure today and exaggerated increase with exercise suggest he may benefit from treatment with an antagonist of the renin-angiotensin system, given his diabetes. 4) The "heart flutters" that he described were mild and may warrant ambulatory rhythm monitoring for conclusive evaluation. This will be available through the [facility] starting in early June.
[2021-05-20] MEDS ORDERED: PERFLUTREN LIPID MICROSPHERES 1.65 MG/1.5 ML VIAL IVP ONE (16:29)
== END 2021-05-20 09:21 | disposition home or self-care (01) ==
LOC: DI 09:20
PROVIDERS: ATTEND Family Medicine
DX: E11.9 Type 2 diabetes mellitus without complications (principal); R07.9 Chest pain, unspecified; R00.2 Palpitations; E78.5 Hyperlipidemia, unspecified; Z87.891 Personal history of nicotine dependence; I10 Essential (primary) hypertension
CPT/HCPCS: 93016; 93017; 93018; 93350; Q9957

== ENCOUNTER 2021-07-13 10:29 | Outpatient (CLI) | payer MEDICARE, OTHER ==
[2021-07-13 10:53] LABS: BASOPHILS % (AUTO) 0.8 %; EOSINOPHILS # (AUTO) 0.1 10^3/uL (0.0-0.7); EOSINOPHILS % (AUTO) 3.9 %; HCT - HEMATOCRIT 41.2 % (42.0-52.0); HGB - HEMOGLOBIN 13.9 g/dL (14.0-18.0); LYMPHOCYTES # (AUTO) 1.4 10^3/uL (1.5-3.5); LYMPHOCYTES % (AUTO) 38.4 %; MEAN CORPUSCULAR HEMOGLOBIN 30.6 pg (27.0-31.0); MEAN CORPUSCULAR HGB CONC 33.7 g/dL (32.0-36.0); MEAN CORPUSCULAR VOLUME 90.7 fL (80.0-94.0); MEAN PLATELET VOLUME 9.9 fL (7.4-11.4); MONOCYTES # (AUTO) 0.3 10^3/uL (0.0-1.0); MONOCYTES % (AUTO) 8.6 %; NEUTROPHILS # (AUTO) 1.7 10^3/uL (1.5-6.6); PLT - PLATELET COUNT 179 10^3/uL (130-450); RED BLOOD COUNT 4.54 10^6/uL (4.70-6.10); RED CELL DISTRIBUTION WIDTH 13.2 % (12.0-15.0); WHITE BLOOD COUNT 3.6 x10^3/uL (4.8-10.8)
[2021-07-13 11:14] LABS: ALBUMIN 4.2 g/dL (3.2-5.5); ALBUMIN/GLOBULIN RATIO 1.2 (1.0-2.2); ALKALINE PHOSPHATASE 45 IU/L (42-121); ALT ALANINE AMINOTRANSFERASE 28 IU/L (10-60); AST ASPARTATE AMINOTRANSFERASE 25 IU/L (10-42); BILIRUBIN,TOTAL 0.6 mg/dL (0.2-1.0); BUN - BLOOD UREA NITROGEN 25 mg/dL (6-20); CALCIUM 8.7 mg/dL (8.5-10.3); CARBON DIOXIDE - CO2 27 mmol/L (21-32); CHLORIDE 103 mmol/L (101-111); CHOL/HDL RATIO 2.9 (<5.0); CHOLESTEROL 131 mg/dL; CREATININE 0.8 mg/dL (0.6-1.2); GFR - MDRD 97 (>89); GLUCOSE 104 mg/dL (70-100); HDL CHOLESTEROL 45 mg/dL; LDL CHOLESTEROL,CALCULATED 73 mg/dL; LDL/HDL RATIO 1.6 (<3.6); SODIUM 138 mmol/L (135-145); TOTAL PROTEIN 7.6 g/dL (6.7-8.2); TRIGLYCERIDES 67 mg/dL; VLDL CHOLESTEROL 13 mg/dL
[2021-07-13 11:26] LABS: THYROID STIMULATING HORMONE 0.92 uIU/mL (0.34-5.60)
[2021-07-13 11:39] LABS: ESTIMATED AVERAGE GLUCOSE 157 mg/dL (70-100); HEMOGLOBIN A1c% 7.1 % (4.27-6.07)
== END 2021-07-13 10:30 | disposition home or self-care (01) ==
LOC: LAB 10:29
PROVIDERS: ATTEND Family Medicine
DX: E66.9 Obesity, unspecified (principal); J32.9 Chronic sinusitis, unspecified; E11.9 Type 2 diabetes mellitus without complications; R61 Generalized hyperhidrosis; R05.8 Other specified cough
CPT/HCPCS: 36415; 80053; 80061; 83036; 83721; 84443; 85025

== ENCOUNTER 2021-10-14 08:52 | Outpatient (CLI) | payer MEDICARE, OTHER ==
[2021-10-14 09:36] LABS: CALCIUM 8.9 mg/dL (8.5-10.3); CREATININE 0.9 mg/dL (0.6-1.2); POTASSIUM 4.1 mmol/L (3.5-5.0)
[2021-10-14 09:43] LABS: CREATININE,URINE 107.4 mg/dL; MICROALBUM/CREATININE RATIO,UR 6.5 ug/mg (<30.0); MICROALBUMIN,URINE 0.7 mg/dL (0-300.0)
[2021-10-14 12:23] LABS: ESTIMATED AVERAGE GLUCOSE 154 mg/dL (70-100)
== END 2021-10-14 08:53 | disposition home or self-care (01) ==
LOC: LAB 08:52
PROVIDERS: ATTEND Family Medicine
DX: E11.9 Type 2 diabetes mellitus without complications (principal); Z12.5 Encounter for screening for malignant neoplasm of prostate; E66.01 Morbid (severe) obesity due to excess calories; G47.33 Obstructive sleep apnea (adult) (pediatric)
CPT/HCPCS: 36415; 80048; 82043; 82570; 83036; G0103; 84153

== ENCOUNTER 2022-01-13 19:51 | Outpatient (CLI) | payer MEDICARE, OTHER ==
[2022-01-13 20:19] LABS: BASOPHILS % (AUTO) 0.4 %; EOSINOPHILS # (AUTO) 0.1 10^3/uL (0.0-0.7); HGB - HEMOGLOBIN 14.3 g/dL (14.0-18.0); LYMPHOCYTES % (AUTO) 36.1 %; MEAN CORPUSCULAR VOLUME 91.1 fL (80.0-94.0); MEAN PLATELET VOLUME 9.9 fL (7.4-11.4); MONOCYTES # (AUTO) 0.4 10^3/uL (0.0-1.0); NEUTROPHILS # (AUTO) 2.9 10^3/uL (1.5-6.6); NEUTROPHILS % (AUTO) 53.5 %; PLT - PLATELET COUNT 169 10^3/uL (130-450); RED BLOOD COUNT 4.61 10^6/uL (4.70-6.10); RED CELL DISTRIBUTION WIDTH 12.8 % (12.0-15.0); WHITE BLOOD COUNT 5.4 x10^3/uL (4.8-10.8)
[2022-01-13 20:35] LABS: ALBUMIN 4.4 g/dL (3.2-5.5); ALBUMIN/GLOBULIN RATIO 1.3 (1.0-2.2); ALKALINE PHOSPHATASE 58 IU/L (42-121); ALT ALANINE AMINOTRANSFERASE 24 IU/L (10-60); AST ASPARTATE AMINOTRANSFERASE 22 IU/L (10-42); BILIRUBIN,TOTAL 0.5 mg/dL (0.2-1.0); BUN - BLOOD UREA NITROGEN 21 mg/dL (6-20); CALCIUM 9.3 mg/dL (8.5-10.3); CARBON DIOXIDE - CO2 27 mmol/L (21-32); CHLORIDE 102 mmol/L (101-111); CHOL/HDL RATIO 2.7 (<5.0); CHOLESTEROL 131 mg/dL; CREATININE 0.9 mg/dL (0.6-1.2); GFR - MDRD 84 (>89); GLUCOSE 157 mg/dL (70-100); HDL CHOLESTEROL 48 mg/dL; LDL CHOLESTEROL,CALCULATED 73 mg/dL; LDL/HDL RATIO 1.5 (<3.6); SODIUM 137 mmol/L (135-145); TOTAL PROTEIN 7.9 g/dL (6.7-8.2); TRIGLYCERIDES 50 mg/dL; VLDL CHOLESTEROL 10 mg/dL
[2022-01-13 20:47] LABS: THYROID STIMULATING HORMONE 1.1 uIU/mL (0.34-5.60)
[2022-01-13 20:49] LABS: FREE T3 3.14 pg/mL (2.5-3.9); FREE T4 (FREE THYROXINE) 0.71 ng/dL (0.58-1.64)
[2022-01-13 20:51] LABS: ESTIMATED AVERAGE GLUCOSE 154 mg/dL (70-100)
== END 2022-01-13 19:52 | disposition home or self-care (01) ==
LOC: LAB 19:51
PROVIDERS: ATTEND Family Medicine
DX: E11.9 Type 2 diabetes mellitus without complications (principal); I10 Essential (primary) hypertension; E78.5 Hyperlipidemia, unspecified; F32.A Depression, unspecified; E66.9 Obesity, unspecified; Z79.4 Long term (current) use of insulin
CPT/HCPCS: 36415; 80053; 80061; 83036; 83721; 84439; 84443; 84481; 85025

== ENCOUNTER 2022-03-04 08:00 | Outpatient (CLI) | payer MEDICARE, OTHER | END 2022-03-04 23:59 | disposition home or self-care (01) | LOC: LAB.N 08:00 | PROVIDERS: ATTEND Family Medicine | DX: S61.412A Laceration without foreign body of left hand, initial encounter (principal) | CPT/HCPCS: 87070; 87205 ==

== ENCOUNTER 2022-05-08 09:38 | Outpatient (CLI) | payer MEDICARE, OTHER ==
[2022-05-08 10:16] VITALS: BP 128/80
--- NOTE | 2022-05-08 10:16 | SLEEP CARE CONSULTATION ---
Information from patient questionnaire entered by Ashwini Jones. I have reviewed and concur with the information entered by Ashiwni Jones. This document represents the service I personally performed and the decisions made by me, Sharon Santa ARNP. History of Present Illness Service Date and Time: 05/08/2022 0938 Previous diagnosis: Severe, Obstructive Sleep Apnea-Hypopnea Syndrome AHI: 57.8 Reason for follow up: annual (LAST SEEN 01/2021) Equipment type: CPAP (DREAMSTATION 2; s/u 05/10/2016) Equipment obtained from: Other ([facility]; getting supplies) Mask style: Full face Mask brand: Resmed (Airfit [id number]) Backup mask available: Yes (old mask) Last cushion change: 2 weeks ago Prior sleep studies: Yes Year and Where: 2007 - [facility] Sleep Type of Sleep Study: Polysomnography HPI additional information: GENE ESPINAL was diagnosed to have severe, AHI 57.8, obstructive sleep apnea- hypopnea syndrome and returned today for CPAP therapy annual follow-up. Sleep Study - Results Type of Sleep Study: Polysomnography Prior sleep studies: Yes Year and Where: 2007 - [facility] Sleep CPAP Compliance Data - Data Reviewed with Patient Average duration of nightly device use: 7 hours, 26 minutes, 17 seconds Compliance rate %: 97.2 (11/08/21 to 05/06/22; 180/180 days used) Current pressure setting (cmH2O): 18-20 Average residual AHI: 4.6 Central apnea: 0.2 Obstructive apnea: 2.2 Hypopnea: 2.2 Average large leak: 3 minutes 29 secs Subjective Patient concerns: reports: nasal congestion (resolved with humidifier adjustment), dry mouth, nose, throat (may be oral venting, not often). denies: aerophagia, mask discomfort, air blowing in eyes, mask leak noise, condensation in mask/hose, epistaxis Observed to snore while using device: No Current pressure setting perceived as: comfortable On therapy, patient: reports: sleeping better, awakening more refreshed, being more awake and alert during the day, more rested overall. denies: drowsiness while driving Initial [place] Sleepiness Scale score: 10 Current [place] Sleepiness Scale score: 5 (05/08/22) Allergies and Home Medications Drug allergies reviewed: Yes (toradol, septra, rocephin) Home medication list reviewed: Yes (Montelukast) Review of Systems Review of systems same as previous: Yes (no changes) Physical Exam Vital signs obtained and entered by: Devendra JONES MA Blood Pressure: 128/80 (left arm ) Cuff size: long Heart Rate: 99 O2 Saturation: 77 Height: 5 ft 10 in Weight: 273 lb (with clothes/shoes) Body Mass Index: 39.2 BMI Classification: Obese Impression and Plan 1. Obstructive Sleep Apnea-Hypopnea Syndrome, severe, with good treatment compliance and good apnea control. On CPAP therapy, the patient has better sleep quality and is more rested overall. Patient has significant improvement of their sleep apnea and are satisfied with current CPAP therapy. Patient denies signif icant problems with oral dryness, nasal congestion, epistaxis, skin irritation or aerophagia. Patient's apnea severity and rationale for treatment to reduce apnea, improve sleep quality and reduce cardiovascular and cerebrovascular events was reviewed. I also reviewed the benefit of consistent device use of CPAP for diabetes. 2. Obesity, unspecified. Currently patients BMI is 39.2. He has been losing weight and is doing regular exercise. Obesity increases the risk of apnea, CPAP pressure requirements and overall health risks especially cardiovascular and diabetes. Thus patient is advised to continue to try to lose weight. * Continue auto CPAP pressure at 18-20 cmH2O * Update supplies * Notify me if snoring with mask or feeling that the pressure is too much or too little * Attempt to lose weight * Call this office if any problems using CPAP * Return for follow up in 1 year, or sooner if concerns arise Counseling Topics: Spare mask, Weight loss health impact Visit Type: In Office Time Spent with Patient (minutes): 21 Provider Statement: I spent 100% of the Face to Face Visit with the patient with greater than 50% spent counseling the patient and coordination of care.
== END 2022-05-08 09:39 | disposition home or self-care (01) ==
LOC: SC 09:38
PROVIDERS: ATTEND Nurse Practitioner Family
DX: G47.33 Obstructive sleep apnea (adult) (pediatric) (principal); E66.9 Obesity, unspecified; Z68.39 Body mass index [BMI] 39.0-39.9, adult
CPT/HCPCS: 99213; G0463; 99212

== ENCOUNTER 2022-06-03 10:05 | Outpatient (CLI) | payer MEDICARE, OTHER ==
[2022-06-03 10:29] LABS: BASOPHILS % (AUTO) 0.4 %; EOSINOPHILS # (AUTO) 0.1 10^3/uL (0.0-0.7); EOSINOPHILS % (AUTO) 2.2 %; HCT - HEMATOCRIT 43.3 % (42.0-52.0); HGB - HEMOGLOBIN 14.1 g/dL (14.0-18.0); LYMPHOCYTES # (AUTO) 1.5 10^3/uL (1.5-3.5); LYMPHOCYTES % (AUTO) 29.2 %; MEAN CORPUSCULAR HEMOGLOBIN 29.4 pg (27.0-31.0); MEAN CORPUSCULAR HGB CONC 32.6 g/dL (32.0-36.0); MEAN CORPUSCULAR VOLUME 90.4 fL (80.0-94.0); MEAN PLATELET VOLUME 9.9 fL (7.4-11.4); MONOCYTES # (AUTO) 0.4 10^3/uL (0.0-1.0); PLT - PLATELET COUNT 165 10^3/uL (130-450); RED BLOOD COUNT 4.79 10^6/uL (4.70-6.10); RED CELL DISTRIBUTION WIDTH 12.9 % (12.0-15.0)
[2022-06-03 11:07] LABS: ALBUMIN 4.3 g/dL (3.2-5.5); ALBUMIN/GLOBULIN RATIO 1.3 (1.0-2.2); ALKALINE PHOSPHATASE 49 IU/L (42-121); ALT ALANINE AMINOTRANSFERASE 24 IU/L (10-60); AST ASPARTATE AMINOTRANSFERASE 23 IU/L (10-42); BILIRUBIN,TOTAL 0.9 mg/dL (0.2-1.0); BUN - BLOOD UREA NITROGEN 25 mg/dL (6-20); CALCIUM 8.8 mg/dL (8.5-10.3); CARBON DIOXIDE - CO2 28 mmol/L (21-32); CHLORIDE 100 mmol/L (101-111); CHOL/HDL RATIO 2.9 (<5.0); CHOLESTEROL 114 mg/dL; GFR - MDRD 75 (>89); GLUCOSE 206 mg/dL (70-100); HDL CHOLESTEROL 40 mg/dL; LDL CHOLESTEROL,CALCULATED 53 mg/dL; LDL/HDL RATIO 1.3 (<3.6); SODIUM 136 mmol/L (135-145); TOTAL PROTEIN 7.7 g/dL (6.7-8.2); TRIGLYCERIDES 107 mg/dL; VLDL CHOLESTEROL 21 mg/dL
[2022-06-03 11:16] LABS: THYROID STIMULATING HORMONE 1.49 uIU/mL (0.34-5.60)
[2022-06-03 11:17] LABS: FREE T3 3.21 pg/mL (2.5-3.9)
[2022-06-03 11:18] LABS: FREE T4 (FREE THYROXINE) 0.86 ng/dL (0.58-1.64)
[2022-06-03 12:27] LABS: ESTIMATED AVERAGE GLUCOSE 174 mg/dL (70-100); HEMOGLOBIN A1c% 7.7 % (4.27-6.07)
== END 2022-06-03 10:06 | disposition home or self-care (01) ==
LOC: LAB 10:05
PROVIDERS: ATTEND Family Medicine
DX: E11.9 Type 2 diabetes mellitus without complications (principal); E66.9 Obesity, unspecified; E78.5 Hyperlipidemia, unspecified; I10 Essential (primary) hypertension; Z79.4 Long term (current) use of insulin; F32.A Depression, unspecified
CPT/HCPCS: 36415; 80053; 80061; 83036; 83721; 84439; 84443; 84481; 85025

== ENCOUNTER 2022-08-31 10:49 | Outpatient (CLI) | payer MEDICARE, OTHER ==
[2022-08-31 11:13] LABS: CALCIUM 9.3 mg/dL (8.5-10.3); CREATININE 0.9 mg/dL (0.6-1.2); POTASSIUM 4.2 mmol/L (3.5-5.0)
[2022-08-31 11:20] LABS: CREATININE,URINE 135.6 mg/dL; MICROALBUM/CREATININE RATIO,UR 2.9 ug/mg (<30.0); MICROALBUMIN,URINE 0.4 mg/dL (0-300.0)
[2022-08-31 11:26] LABS: ESTIMATED AVERAGE GLUCOSE 171 mg/dL (70-100); HEMOGLOBIN A1c% 7.6 % (4.27-6.07)
== END 2022-08-31 10:50 | disposition home or self-care (01) ==
LOC: LAB 10:49
PROVIDERS: ATTEND Family Medicine
DX: E11.9 Type 2 diabetes mellitus without complications (principal); J44.9 Chronic obstructive pulmonary disease, unspecified; M17.0 Bilateral primary osteoarthritis of knee; Z12.5 Encounter for screening for malignant neoplasm of prostate; Z79.4 Long term (current) use of insulin
CPT/HCPCS: 36415; 80048; 82043; 82570; 83036; G0103; 84153

== ENCOUNTER 2022-09-21 19:08 | Outpatient (CLI) | payer MEDICARE, OTHER ==
[2022-09-21 19:30] LABS: BASOPHILS % (AUTO) 0.5 %; EOSINOPHILS # (AUTO) 0.2 10^3/uL (0.0-0.7); EOSINOPHILS % (AUTO) 2.7 %; HCT - HEMATOCRIT 41.7 % (42.0-52.0); HGB - HEMOGLOBIN 14.2 g/dL (14.0-18.0); LYMPHOCYTES # (AUTO) 2.4 10^3/uL (1.5-3.5); LYMPHOCYTES % (AUTO) 40.6 %; MEAN CORPUSCULAR HGB CONC 34.1 g/dL (32.0-36.0); MEAN CORPUSCULAR VOLUME 88.2 fL (80.0-94.0); MONOCYTES # (AUTO) 0.5 10^3/uL (0.0-1.0); MONOCYTES % (AUTO) 8.3 %; NEUTROPHILS # (AUTO) 2.8 10^3/uL (1.5-6.6); NEUTROPHILS % (AUTO) 47.7 %; PLT - PLATELET COUNT 181 10^3/uL (130-450); RED BLOOD COUNT 4.73 10^6/uL (4.70-6.10); RED CELL DISTRIBUTION WIDTH 12.5 % (12.0-15.0); WHITE BLOOD COUNT 5.9 x10^3/uL (4.8-10.8)
[2022-09-21 19:42] LABS: ALBUMIN 4.3 g/dL (3.2-5.5); ALBUMIN/GLOBULIN RATIO 1.2 (1.0-2.2); BILIRUBIN,TOTAL 0.4 mg/dL (0.2-1.0); CALCIUM 9.2 mg/dL (8.5-10.3); POTASSIUM 4.3 mmol/L (3.5-5.0)
== END 2022-09-21 19:09 | disposition home or self-care (01) ==
LOC: LAB 19:08
PROVIDERS: ATTEND Family Medicine
DX: K62.5 Hemorrhage of anus and rectum (principal)
CPT/HCPCS: 36415; 80053; 82274; 85025

== ENCOUNTER 2022-09-22 08:00 | Outpatient (CLI) | payer MEDICARE, OTHER ==
[2022-09-22 18:43] LABS: FECAL OCCULT BLOOD (FIT) NEGATIVE (NEGATIVE)
== END 2022-09-22 23:59 | disposition home or self-care (01) ==
LOC: LAB.N 08:00
PROVIDERS: ATTEND Family Medicine
DX: K62.5 Hemorrhage of anus and rectum (principal)
CPT/HCPCS: 82274

== ENCOUNTER 2023-04-06 11:56 | Outpatient (CLI) | payer MEDICARE, OTHER ==
[2023-04-06 12:12] LABS: BASOPHILS % (AUTO) 0.5 %; EOSINOPHILS # (AUTO) 0.1 10^3/uL (0.0-0.7); EOSINOPHILS % (AUTO) 2.2 %; HCT - HEMATOCRIT 41.5 % (42.0-52.0); HGB - HEMOGLOBIN 13.6 g/dL (14.0-18.0); LYMPHOCYTES # (AUTO) 1.1 10^3/uL (1.5-3.5); MEAN CORPUSCULAR HEMOGLOBIN 29.6 pg (27.0-31.0); MEAN CORPUSCULAR HGB CONC 32.8 g/dL (32.0-36.0); MEAN CORPUSCULAR VOLUME 90.4 fL (80.0-94.0); MEAN PLATELET VOLUME 9.7 fL (7.4-11.4); MONOCYTES # (AUTO) 0.6 10^3/uL (0.0-1.0); MONOCYTES % (AUTO) 14.4 %; NEUTROPHILS # (AUTO) 2.3 10^3/uL (1.5-6.6); NEUTROPHILS % (AUTO) 55.7 %; PLT - PLATELET COUNT 147 10^3/uL (130-450); RED BLOOD COUNT 4.59 10^6/uL (4.70-6.10); RED CELL DISTRIBUTION WIDTH 13.3 % (12.0-15.0); WHITE BLOOD COUNT 4.1 x10^3/uL (4.8-10.8)
[2023-04-06 12:27] LABS: ALBUMIN 4.1 g/dL (3.2-5.5); ALBUMIN/GLOBULIN RATIO 1.3 (1.0-2.2); BILIRUBIN,TOTAL 0.4 mg/dL (0.2-1.0); CALCIUM 9.1 mg/dL (8.5-10.3); CREATININE 0.9 mg/dL (0.6-1.3); CRP - C-REACTIVE PROTEIN 1.4 mg/dL (<0.5); POTASSIUM 4.1 mmol/L (3.5-4.5); TOTAL PROTEIN 7.3 g/dL (6.4-8.9)
[2023-04-06 13:10] LABS: RHEUMATOID FACTOR NEGATIVE (Negative)
== END 2023-04-06 11:57 | disposition home or self-care (01) ==
LOC: LAB 11:56
PROVIDERS: ATTEND Internal Medicine Rheumatology
DX: Z87.39 Personal history of other diseases of the musculoskeletal system and connective tissue (principal)
CPT/HCPCS: 36415; 80053; 85025; 85651; 86140; 86200; 86430

== ENCOUNTER 2023-05-11 08:51 | Outpatient (CLI) | payer MEDICARE, OTHER ==
--- NOTE | 2023-05-11 09:21 | Sleep Patient Instructions ---
Sleep Center Visit Summary - Patient Visit Information Reason for Visit: Annual Visit - Patient Instructions Additional Instructions: You will continue with CPAP therapy with pressure set at 18-20 cmH2O. You will be completing a titration sleep study in our sleep lab where you will be sleeping with the CPAP machine on and we will be adjusting your pressures to find your optimal pressure settings. Once we have your results back, we will call you and schedule a follow up to go over the results. You will be called by our office staff to schedule your follow up, but you may contact us with any questions or issue as needed. We encourage you to continue to try to lose weight. - Clinic Information Contact: [facility] [address] [place] [address] [email or web address] T: [phone]
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
[2023-05-11 09:29] VITALS: BP 120/72; O2SAT 96
== END 2023-05-11 08:52 | disposition home or self-care (01) ==
LOC: SC 08:51
PROVIDERS: ATTEND Nurse Practitioner Family
DX: G47.33 Obstructive sleep apnea (adult) (pediatric) (principal); E66.9 Obesity, unspecified; Z68.38 Body mass index [BMI] 38.0-38.9, adult
CPT/HCPCS: 99213; G0463; 99212

== ENCOUNTER 2023-05-26 19:38 | Outpatient (CLI) | payer MEDICARE, OTHER | END 2023-05-26 19:39 | disposition home or self-care (01) | LOC: SC 19:38 | PROVIDERS: ATTEND Nurse Practitioner Family | DX: G47.33 Obstructive sleep apnea (adult) (pediatric) (principal); G47.61 Periodic limb movement disorder | CPT/HCPCS: 95811 ==

== ENCOUNTER 2023-06-02 09:50 | Outpatient (CLI) | payer MEDICARE, OTHER ==
--- NOTE | 2023-06-02 10:18 | Sleep Patient Instructions ---
Sleep Center Visit Summary - Patient Visit Information Reason for Visit: Titration study follow up - Patient Instructions Additional Instructions: You were here for follow up of CPAP therapy. You will be continued on CPAP therapy with pressure at 18 cmH2O. Please let us know if the pressure change is uncomfortable and we can make further adjustments of the pressure. You should follow up with sleep care in 1-2 months. You may contact us sooner for any questions or concerns. - Clinic Information Contact: [facility] [address] [place] [id number] [email or web address] T: [phone]
--- NOTE | 2023-06-02 10:32 | SLEEP CARE CONSULTATION ---
Information from patient questionnaire entered by Carie Soria. I have reviewed and concur with the information entered by Carie Soria. This document represents the service I personally performed and the decisions made by , Sharon Santa ARNP. History of Present Illness Service Date and Time: 06/02/2023 0950 Previous diagnosis: Severe, Obstructive Sleep Apnea-Hypopnea Syndrome AHI: 57.8 Reason for follow up: other (7 DAY F/U) Equipment type: CPAP (DREAMSTATION 2; s/u 05/10/2016) Equipment obtained from: Other ([facility]; getting supplies) Mask style: Full face Mask brand: [employer] (Vitera, large cushion) Prior sleep studies: Yes Year and Where: 2007 - Located [facility] Sleep Type of Sleep Study: Polysomnography HPI additional information: GENE ESPINAL returns for follow up of the sleep study with a manual CPAP titration study performed on 05/26/23. The patient was informed of the following polysomnography findings: CPAP was initiated at 10 cmH2O and titrated up to CPAP at 21 cmH2O. CPAP at 18 cmH2O appeared to be optimal (AHI of 4.2 per hour on the pressure). There was supine REM sleep on the pressure. Oxygen saturation was minimally low. Lower CPAP settings allowed slightly more frequent residual respiratory events. The patient appeared to have tolerated positive airway pressure therapy very well. The patients sleep efficiency was normal. Sleep Study - Results Type of Sleep Study: Polysomnography (TITRATION F/U005/26/23) Prior sleep studies: Yes Year and Where: 2007 - Located within [facility] Sleep Polysomnography/Home Sleep Study results: IMPRESSION: The quality of the study is good. CPAP was initiated at 10 cmH2O and titrated up to CPAP at 21 cmH2O. CPAP at 18 cmH2O appeared to be optimal (AHI of 4.2 per hour on the pressure). There was supine REM sleep on the pressure. Oxygen saturation was minimally low. Lower CPAP settings allowed slightly more frequent residual respiratory events. The patient appeared to have tolerated positive airway pressure therapy very well. The patients sleep efficiency was normal. The sleep architecture was abnormal for sleep fragmentation and reduced amount of time spent in REM and slow wave sleep (N3). There was severe periodic leg movement of sleep contributing to the sleep fragmentation. Cardiac rhythm was normal sinus rhythm without significant arrhythmia. No abnormal behavior (parasomnia) observed during the night. CPAP Compliance Data - Data Reviewed with Patient Average duration of nightly device use: 6 HRS 27 MIN 37 SEC Compliance rate %: 85.7 (05/25/23-05/31/23) Current pressure setting (cmH2O): 18-20 Average residual AHI: 10.6 Subjective Patient concerns: reports: dry mouth, nose, throat. denies: aerophagia, mask discomfort, air blowing in eyes, mask leak noise, condensation in mask/hose, nasal congestion, epistaxis Observed to snore while using device: No Current pressure setting perceived as: comfortable On therapy, patient: reports: sleeping better, awakening more refreshed, being more awake and alert during the day, more rested overall. denies: drowsiness while driving Initial [place] Sleepiness Scale score: 10 Current [place] Sleepiness Scale score: 5 (06/02/23) Allergies and Home Medications Known drug allergies: Yes (as listed) Drug allergies reviewed: Yes Home medication list reviewed: Yes (no changes) Allergy and home medication list: Allergies ketorolac [From Toradol] Allergy (Verified 06/01/23 15:40) Anaphylaxis sulfamethoxazole [From Septra] Allergy (Verified 06/01/23 15:40) Rash trimethoprim [From Septra] Allergy (Verified 06/01/23 15:40) Rash cefazolin [From Ancef] Adverse Reaction (Verified 06/01/23 15:40) Review of Systems Review of systems same as previous: Yes (NO CHANGE) Physical Exam Vital signs obtained and entered by: CARIE Goode MA Blood Pressure: 148/84 (LEFT ARM) Cuff size: regular Heart Rate: 93 O2 Saturation: 96 Height: 5 ft 10 in Weight: 272 lb 6.4 oz Body Mass Index: 39.0 BMI Classification: Obese Impression and Plan 1. Obstructive Sleep Apnea-Hypopnea Syndrome, severe, with good treatment compliance and fair apnea control with elevated residual AHI. He returns today after titration study for results and follow up. His optimal pressure was seen at 18 cmH2O. He was fitted to a full face mask [employer]P Vitera, large cushion on night of study. The patients pressure will be changed to CPAP 18 cmH20. Patient advised to contact me if pressure change is uncomfortable so that it can be adjusted. Goals for apnea control discussed. Patient's apnea severity and rationale for treatment to reduce apnea, improve sleep quality and reduce cardiovascular and cerebrovascular events was reviewed. I also reviewed the benefit of consistent device use of CPAP for hypertension and diabetes. 2. Periodic limb movement, severe, that did not fragment patients sleep. Periodic limb movement of sleep (PLMS) is characterized by episodes of repetitive limb movements that occur during sleep and usually involve the lower limbs. The etiology is unknown but can be associated with restless leg syndrome (RLS), neuropathy, spinal cord diseases, kidney disease, rheumatological disorders, narcolepsy, obstructive sleep apnea, and REM sleep behavior disorder. Other factors that can increase PLMS and/or RLS are heredity and iron deficiency as reflected by a low serum ferritin level below 50 to 75mcg / L. Sleep hygiene methods can also improve sleep as well as lifestyle changes such as regular exercise. Patient requested lab to check his ferritin level because he is going to see his primary provider, Dr. Sun and he will then discuss if needs further evaluation or treatment. 3. Obesity, unspecified. Currently patients BMI is 39. Obesity increases the risk of apnea, CPAP pressure requirements and overall health risks especially cardiovascular and diabetes. Thus patient is advised to lose weight. * Change to CPAP pressure at 18 cmH2O * Order for Ferritin level due to severe PLMs, patient to followup with PCP * Notify me if snoring with mask or feeling that the pressure is too much or too little * Attempt to lose weight * Call this office if any problems using CPAP * Return for follow up in 1-2 months, or sooner if concerns arise Counseling Topics: Spare mask, Weight loss health impact Follow up with Sleep Care in: 1-2 months Follow up recommended for: PLMS (ferritin level ordered) Visit Type: In Office Time Spent with Patient (minutes): 29 Provider Statement: I spent 100% of the Face to Face Visit with the patient with greater than 50% spent counseling the patient and coordination of care.
[2023-06-02 10:34] VITALS: BP 148/84; O2SAT 96
== END 2023-06-02 09:51 | disposition home or self-care (01) ==
LOC: SC 09:50
PROVIDERS: ATTEND Nurse Practitioner Family
DX: G47.33 Obstructive sleep apnea (adult) (pediatric) (principal); G47.61 Periodic limb movement disorder; E66.9 Obesity, unspecified; Z68.39 Body mass index [BMI] 39.0-39.9, adult
CPT/HCPCS: 99213; G0463; 99212

== ENCOUNTER 2023-07-01 10:10 | Outpatient (CLI) | payer MEDICARE, OTHER ==
--- NOTE | 2023-07-01 10:53 | Sleep Patient Instructions ---
Sleep Center Visit Summary - Patient Visit Information Reason for Visit: 1 month follow-up - Patient Instructions Additional Instructions: You were here for follow up of CPAP therapy. You will be continued on CPAP therapy with pressure at 18 cmH2O. You should follow up with sleep care in 3 months. You may contact us sooner for any questions or concerns. - Clinic Information Contact: [facility] [address] [place] [id number] [email or web address] T: [phone]
--- NOTE | 2023-07-01 10:57 | SLEEP CARE CONSULTATION ---
Information from patient questionnaire entered by Lesly Soria. I have reviewed and concur with the information entered by Lesly Soria. This document represents the service I personally performed and the decisions made by me, Sharon Santa ARNP. History of Present Illness Service Date and Time: 07/01/2023 1010 Previous diagnosis: Severe, Obstructive Sleep Apnea-Hypopnea Syndrome AHI: 57.8 Reason for follow up: one month (F/U) Equipment type: CPAP (DREAMSTATION 2; s/u 05/10/2016) Equipment obtained from: Other ([facility]; getting supplies) Mask style: Full face Mask brand: [employer] (Vitera) Backup mask available: Yes Last cushion change: 1 month Prior sleep studies: Yes Year and Where: 2007 - [facility] Sleep Type of Sleep Study: Polysomnography (TITRATION 05/26/23) HPI additional information: GENE ESPINAL was diagnosed to have severe, AHI 57.8, obstructive sleep apnea- hypopnea syndrome and returned today for CPAP therapy one month follow-up. Sleep Study - Results Type of Sleep Study: Polysomnography (TITRATION 05/26/23) Prior sleep studies: Yes Year and Where: 2007 - [facility] Sleep CPAP Compliance Data - Data Reviewed with Patient Average duration of nightly device use: 8 HRS 5 MINS 31 SECS Compliance rate %: 100 (05/29/23-06/27/23; 30/ days used) Current pressure setting (cmH2O): 18 Average residual AHI: 5.6 Central apnea: 0.3 Obstructive apnea: 4.4 Hypopnea: 1.9 Subjective Patient concerns: reports: dry mouth, nose, throat (dry mouth, occasional). denies: aerophagia, mask discomfort, air blowing in eyes, mask leak noise, condensation in mask/hose, nasal congestion, epistaxis Observed to snore while using device: No Current pressure setting perceived as: comfortable On therapy, patient: reports: sleeping better, awakening more refreshed, being more awake and alert during the day, more rested overall. denies: drowsiness while driving Initial [place] Sleepiness Scale score: 10 Current [place] Sleepiness Scale score: 5 Allergies and Home Medications Known drug allergies: Yes (as listed) Drug allergies reviewed: Yes Home medication list reviewed: Yes (no changes) Allergy and home medication list: Allergies ketorolac [From Toradol] Allergy (Verified 06/29/23 13:49) Anaphylaxis sulfamethoxazole [From Septra] Allergy (Verified 06/29/23 13:49) Rash trimethoprim [From Septra] Allergy (Verified 06/29/23 13:49) Rash cefazolin [From Ancef] Adverse Reaction (Verified 06/29/23 13:49) Review of Systems Review of systems same as previous: Yes (no changes) Physical Exam Vital signs obtained and entered by: SHARON YEPEZ Blood Pressure: 130/76 Cuff size: regular (right arm) Heart Rate: 69 O2 Saturation: 96 Height: 5 ft 10 in Weight: 277 lb 3.2 oz Body Mass Index: 39.7 BMI Classification: Obese Impression and Plan 1. Obstructive Sleep Apnea-Hypopnea Syndrome, severe, with good treatment compliance and good apnea control with minimal elevation of residual AHI. On CPAP therapy, the patient has better sleep quality and is more rested overall. Patient returns after pressure change that appears to be working well. He has significant improvement of his sleep apnea although is minimally ineffective with a residual average AHI at 5.6. He has been using the fullface mask, F[employer]P Vitera, that was fitted to him the night of the titration study and feels it is more comfortable than his last mask. He is doing well with the current pressure. I would like to have him continue with the current pressure and check in with him in about 3 months to discern whether he needs further adjustments. Patient's apnea severity and rationale for treatment to reduce apnea, improve sleep quality and reduce cardiovascular and cerebrovascular events was reviewed. I also reviewed the benefit of consistent device use of CPAP for hypertension and diabetes. 2. Obesity, unspecified. Currently patients BMI is 39.7. Obesity increases the risk of apnea, CPAP pressure requirements and overall health risks especially cardiovascular and diabetes. Thus patient is advised to lose weight. * Continue CPAP pressure at 18 cmH2O * Notify me if snoring with mask or feeling that the pressure is too much or too little * Attempt to lose weight * Call this office if any problems using CPAP * Return for follow up in 3 months, or sooner if concerns arise Counseling Topics: Spare mask, Weight loss health impact Follow up with Sleep Care in: 3 months Visit Type: In Office Time Spent with Patient (minutes): 20 Provider Statement: I spent 100% of the Face to Face Visit with the patient with greater than 50% spent counseling the patient and coordination of care.
[2023-07-01 11:04] VITALS: BP 130/76; O2SAT 96
== END 2023-07-01 10:11 | disposition home or self-care (01) ==
LOC: SC 10:10
PROVIDERS: ATTEND Nurse Practitioner Family
DX: G47.33 Obstructive sleep apnea (adult) (pediatric) (principal); E66.9 Obesity, unspecified; Z68.39 Body mass index [BMI] 39.0-39.9, adult
CPT/HCPCS: 99213; G0463; 99212

== ENCOUNTER 2023-09-30 10:40 | Outpatient (CLI) | payer MEDICARE, OTHER ==
--- NOTE | 2023-09-30 11:07 | Sleep Patient Instructions ---
Sleep Center Visit Summary - Patient Visit Information Reason for Visit: 3-month follow-up - Patient Instructions Additional Instructions: You were here for follow up of CPAP therapy. You will be continued on CPAP therapy with pressure at 18-20 cmH2O. Please let us know if the pressure change is uncomfortable and we can make further adjustments of the pressure. You should follow up with sleep care in 1-2 months. You may contact us sooner for any questions or concerns. - Clinic Information Contact: [facility] [address] [place] [address] [email or web address] T: [phone]
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
[2023-09-30 11:39] VITALS: BP 149/80; O2SAT 95
== END 2023-09-30 10:41 | disposition home or self-care (01) ==
LOC: SC 10:40
PROVIDERS: ATTEND Nurse Practitioner Family
DX: G47.33 Obstructive sleep apnea (adult) (pediatric) (principal); E66.01 Morbid (severe) obesity due to excess calories; Z68.41 Body mass index [BMI] 40.0-44.9, adult
CPT/HCPCS: 99213; G0463; 99212

== ENCOUNTER 2023-11-24 14:28 | Outpatient (CLI) | payer MEDICARE, OTHER ==
[2023-11-24 14:44] LABS: BASOPHILS % (AUTO) 0.4 %; EOSINOPHILS # (AUTO) 0.1 10^3/uL (0.0-0.7); EOSINOPHILS % (AUTO) 2.6 %; HCT - HEMATOCRIT 41.6 % (42.0-52.0); HGB - HEMOGLOBIN 13.6 g/dL (14.0-18.0); LYMPHOCYTES # (AUTO) 1.7 10^3/uL (1.5-3.5); LYMPHOCYTES % (AUTO) 33.5 %; MEAN CORPUSCULAR HEMOGLOBIN 29.4 pg (27.0-31.0); MEAN CORPUSCULAR HGB CONC 32.7 g/dL (32.0-36.0); MEAN CORPUSCULAR VOLUME 89.8 fL (80.0-94.0); MEAN PLATELET VOLUME 9.9 fL (7.4-11.4); MONOCYTES # (AUTO) 0.4 10^3/uL (0.0-1.0); MONOCYTES % (AUTO) 8.1 %; NEUTROPHILS # (AUTO) 2.7 10^3/uL (1.5-6.6); NEUTROPHILS % (AUTO) 55.2 %; PLT - PLATELET COUNT 190 10^3/uL (130-450); RED BLOOD COUNT 4.63 10^6/uL (4.70-6.10); RED CELL DISTRIBUTION WIDTH 13.3 % (12.0-15.0); WHITE BLOOD COUNT 4.9 x10^3/uL (4.8-10.8)
[2023-11-24 15:04] LABS: ALBUMIN 4.3 g/dL (3.2-5.5); ALBUMIN/GLOBULIN RATIO 1.3 (1.0-2.2); ALKALINE PHOSPHATASE 61 IU/L (42-121); ALT ALANINE AMINOTRANSFERASE 26 IU/L (10-60); AST ASPARTATE AMINOTRANSFERASE 20 IU/L (10-42); BILIRUBIN,TOTAL 0.4 mg/dL (0.2-1.0); BUN - BLOOD UREA NITROGEN 18 mg/dL (6-20); CALCIUM 9.4 mg/dL (8.5-10.3); CARBON DIOXIDE - CO2 32 mmol/L (21-32); CHLORIDE 101 mmol/L (101-111); CHOL/HDL RATIO 2.7 (<5.0); CHOLESTEROL 120 mg/dL; CREATININE 0.9 mg/dL (0.6-1.3); GFR - MDRD 84 (>89); GLUCOSE 158 mg/dL (74-104); HDL CHOLESTEROL 45 mg/dL; LDL CHOLESTEROL,CALCULATED 56 mg/dL; LDL/HDL RATIO 1.2 (<3.6); POTASSIUM 4.5 mmol/L (3.5-4.5); SODIUM 137 mmol/L (135-145); TOTAL PROTEIN 7.6 g/dL (6.4-8.9); TRIGLYCERIDES 95 mg/dL; VLDL CHOLESTEROL 19 mg/dL
[2023-11-24 15:19] LABS: THYROID STIMULATING HORMONE 1.24 uIU/mL (0.34-5.60)
[2023-11-24 16:21] LABS: CREATININE,URINE 47.9 mg/dL
[2023-11-24 16:50] LABS: MICROALBUMIN,URINE < 0.7 mg/dL
[2023-11-24 17:15] LABS: ESTIMATED AVERAGE GLUCOSE 160 mg/dL (70-100); HEMOGLOBIN A1c% 7.2 % (4.27-6.07)
== END 2023-11-24 14:29 | disposition home or self-care (01) ==
LOC: LAB 14:28
PROVIDERS: ATTEND Family Medicine
DX: E11.8 Type 2 diabetes mellitus with unspecified complications (principal); Z12.5 Encounter for screening for malignant neoplasm of prostate; E11.65 Type 2 diabetes mellitus with hyperglycemia; B35.1 Tinea unguium; J44.9 Chronic obstructive pulmonary disease, unspecified
CPT/HCPCS: 36415; 80053; 80061; 82043; 82570; 83036; 84443; 85025; G0103; 83721; 84153